=== PATIENT | male | born 1940 | race Caucasian/White ===

== ENCOUNTER 2021-05-08 10:38 | Inpatient (IN) | payer MEDICARE ==
[2021-05-05 11:11] LABS: BASOPHILS % 0.6 % (0.0-1.0); EOSINOPHILS # (AUTO) 0.1 (0.0-0.4); EOSINOPHILS % 1.2 % (0.0-6.0); HEMOGLOBIN 13.7 g/dL (14.0-18.0); LYMPHOCYTES # (AUTO) 1.7 (1.0-3.2); MEAN CORPUSCULAR HEMOGLOBIN 31.1 pg (28-32); MEAN CORPUSCULAR HGB CONC 32.6 g/dL (31-35); MEAN CORPUSCULAR VOLUME 95.5 fL (81-99); MONOCYTES # (AUTO) 0.5 (0.2-0.8); MONOCYTES % 9.8 % (4.4-11.3); NEUTROPHILS # (AUTO) 2.7 (2.1-6.9); PLATELET COUNT 161 x10e3/uL (140-360)
[2021-05-05 11:36] LABS: ANION GAP 10.4 mmol/L (8-16); CALCIUM 8.5 mg/dL (8.4-10.2); CREATININE, SERUM 0.85 mg/dL (0.72-1.25); POTASSIUM 4.4 mmol/L (3.5-5.1)
[~2021-05-08] VITALS: Ht 177.8 cm; Wt 103.4 kg
[~2021-05-08 10:38] MED LIST: ASPIRIN81 MG PO; ATORVASTATIN CA20 MG PO; FINASTERIDE5 MG PO; FLOMAX0.4 MG PO; ISOSORBIDE MONO30 MG PO; METOPROLOL TART50 MG PO; PROTONIX20 MG PO; VITAMIN C100 MG; VITAMIN D31 GM; ZINC
[2021-05-08] MEDS ORDERED: GENTAMICIN 80MG/NS 100 ML 200 ML IV ONE (11:06)
[2021-05-08] MEDS ORDERED: CEFTRIAXONE 1 GM VIAL ONE (11:06)
[2021-05-08] MEDS ORDERED: SODIUM CHLORIDE 0.9% 50ML 50 ML ONE (11:06)
[2021-05-08] MEDS ORDERED: SODIUM CHLORIDE 0.9% 1000ML 1,000 ML ONE (11:06)
[2021-05-08] MEDS ORDERED: FENTANYL CITRATE/PF 100MCG/2 ML INJ ONE (12:18)
[2021-05-08] MEDS ORDERED: MIDAZOLAM HCL 2 MG/2 ML VIAL ONE (12:18)
[2021-05-08] MEDS ORDERED: ONDANSETRON HCL INJ 2MG/ML 2ML 2 MG/ML VIAL ONE (12:45)
[2021-05-08] MEDS ORDERED: DEXAMETHASONE SOD PHOS INJ 4 MG/ML VIAL ONE (12:45)
[2021-05-08] MEDS ORDERED: SEVOFLURANE INHAL SOLN 250 ML PEN BTL ONE (12:45)
[2021-05-08] MEDS ORDERED: POVIDONE IODINE 0.05% 0.05 % ML PO ONE (12:45)
[2021-05-08] MEDS ORDERED: PROPOFOL IV EMULSION 10 MG/ML 20 ML VIAL ONE (12:45)
[2021-05-08] MEDS ORDERED: B&O 60MG R/S 60 MG SUPP PR ONE (12:46)
[2021-05-08] MEDS ORDERED: IOPAMIDOL 300MG/ML 50ML INFUS..BTL IV ONE (12:46)
[2021-05-08] MEDS ORDERED: PHENAZOPYRIDINE HCL 100 MG TAB PO PRN (14:45)
[2021-05-08] MEDS ORDERED: B&O 60MG R/S 60 MG SUPP PR PRN (14:45)
[2021-05-08] MEDS ORDERED: DIPHENHYDRAMINE HCL 25 MG CAP PO PRN (14:45)
[2021-05-08] MEDS ORDERED: ONDANSETRON HCL INJ 2MG/ML 2ML 2 MG/ML VIAL IV PRN (14:45)
[2021-05-08 15:30] LABS: BASOPHILS % 0.4 % (0.0-1.0); EOSINOPHILS % 0.8 % (0.0-6.0); HEMATOCRIT 39.7 % (38.2-49.6); HEMOGLOBIN 12.5 g/dL (14.0-18.0); LYMPHOCYTES # (AUTO) 1.4 (1.0-3.2); LYMPHOCYTES % 26.3 % (18.0-39.1); MEAN CORPUSCULAR HEMOGLOBIN 30.6 pg (28-32); MEAN CORPUSCULAR HGB CONC 31.5 g/dL (31-35); MEAN CORPUSCULAR VOLUME 97.1 fL (81-99); MONOCYTES # (AUTO) 0.3 (0.2-0.8); MONOCYTES % 5.8 % (4.4-11.3); NEUTROPHILS # (AUTO) 3.4 (2.1-6.9); NEUTROPHILS % 66.3 % (38.7-80.0); PLATELET COUNT 148 x10e3/uL (140-360); RED BLOOD COUNT 4.09 x10e6/uL (4.3-5.7); RED CELL DISTRIBUTION WIDTH 13.4 % (11.7-14.4)
[2021-05-08 15:47] LABS: CREATININE, SERUM 0.73 mg/dL (0.72-1.25)
[2021-05-08 16:16] VITALS: BP 139/80
[2021-05-08 16:17] VITALS: BP 139/80
[2021-05-08 16:19] VITALS: BP 139/80
[2021-05-08] MEDS: DOCUSATE SODIUM 100 MG CAP PO SCH (17:22)
[2021-05-08] MEDS: ACETAMINOPHEN/CODEINE 300MG - 30MG TAB PO PRN (17:49)
[2021-05-08] MEDS: D5.45%NS/KCL 20MEQ 1,000 ML IV SCH (18:22)
[2021-05-08 20:00] VITALS: BP 155/90
[2021-05-08 20:51] VITALS: BP 155/90
[2021-05-09] VITALS (7 sets, daily range): BP systolic 103–146; BP diastolic 58–93
[2021-05-09 06:09] LABS: BASOPHILS % 0.1 % (0.0-1.0); HEMATOCRIT 43.7 % (38.2-49.6); HEMOGLOBIN 14.1 g/dL (14.0-18.0); LYMPHOCYTES # (AUTO) 1.1 (1.0-3.2); LYMPHOCYTES % 15.3 % (18.0-39.1); MEAN CORPUSCULAR HEMOGLOBIN 30.9 pg (28-32); MEAN CORPUSCULAR HGB CONC 32.3 g/dL (31-35); MEAN CORPUSCULAR VOLUME 95.6 fL (81-99); MONOCYTES # (AUTO) 0.6 (0.2-0.8); MONOCYTES % 7.6 % (4.4-11.3); NEUTROPHILS # (AUTO) 5.5 (2.1-6.9); NEUTROPHILS % 76.4 % (38.7-80.0); PLATELET COUNT 167 x10e3/uL (140-360); RED BLOOD COUNT 4.57 x10e6/uL (4.3-5.7); RED CELL DISTRIBUTION WIDTH 13.2 % (11.7-14.4)
[2021-05-09 06:19] LABS: ANION GAP 12.4 mmol/L (8-16); CALCIUM 8.5 mg/dL (8.4-10.2); CREATININE, SERUM 0.74 mg/dL (0.72-1.25); POTASSIUM 4.4 mmol/L (3.5-5.1)
[2021-05-09] MEDS: D5.45%NS/KCL 20MEQ 1,000 ML IV SCH (06:50)
[2021-05-09] MEDS: DOCUSATE SODIUM 100 MG CAP PO SCH ×2 (08:29→17:01)
[2021-05-09] MEDS: CEFTRIAXONE 1 GM in SODIUM CHLORIDE 0.9% 50ML 50 ML IV SCH (08:29)
[2021-05-09] MEDS: METOPROLOL TARTRATE 50 MG TAB PO SCH (09:42)
[2021-05-09] MEDS: ISOSORBIDE MONONITRATE 30 MG TAB CR PO SCH (09:42)
[2021-05-09] MEDS: FINASTERIDE 5 MG TAB PO SCH (09:42)
[2021-05-09] MEDS: PANTOPRAZOLE SOD 40 MG TABEC PO SCH (09:42)
[2021-05-09] MEDS: TAMSULOSIN HCL 0.4 MG CAP PO SCH ×2 (09:42→17:01)
[2021-05-09] MEDS ORDERED: ONDANSETRON HCL 4 MG ORAL DISINTEGRATING TAB PO PRN (10:30)
[2021-05-09] MEDS: ATORVASTATIN 40 MG TAB PO SCH ×2 (21:30→22:54)
[2021-05-10] VITALS: BP 118/74
[2021-05-10 04:00] VITALS: BP 122/87
[2021-05-10 05:59] LABS: BASOPHILS % 0.3 % (0.0-1.0); EOSINOPHILS # (AUTO) 0.1 (0.0-0.4); EOSINOPHILS % 0.9 % (0.0-6.0); HEMATOCRIT 40.9 % (38.2-49.6); LYMPHOCYTES # (AUTO) 2.1 (1.0-3.2); LYMPHOCYTES % 29.8 % (18.0-39.1); MEAN CORPUSCULAR HEMOGLOBIN 30.7 pg (28-32); MEAN CORPUSCULAR HGB CONC 31.8 g/dL (31-35); MEAN CORPUSCULAR VOLUME 96.5 fL (81-99); MONOCYTES # (AUTO) 0.7 (0.2-0.8); MONOCYTES % 10.4 % (4.4-11.3); NEUTROPHILS % 58.2 % (38.7-80.0); PLATELET COUNT 154 x10e3/uL (140-360); RED BLOOD COUNT 4.24 x10e6/uL (4.3-5.7); RED CELL DISTRIBUTION WIDTH 13.6 % (11.7-14.4)
[2021-05-10 06:12] LABS: ANION GAP 10.8 mmol/L (8-16); CALCIUM 8.2 mg/dL (8.4-10.2); CREATININE, SERUM 0.73 mg/dL (0.72-1.25); POTASSIUM 3.8 mmol/L (3.5-5.1)
[2021-05-10 08:20] VITALS: BP 129/89
[2021-05-10 08:48] VITALS: BP 129/89
[2021-05-10] MEDS: DOCUSATE SODIUM 100 MG CAP PO SCH ×2 (10:54→16:56)
[2021-05-10] MEDS: CEFTRIAXONE 1 GM in SODIUM CHLORIDE 0.9% 50ML 50 ML IV SCH (10:54)
[2021-05-10] MEDS: TAMSULOSIN HCL 0.4 MG CAP PO SCH ×2 (10:54→16:56)
[2021-05-10] MEDS: ISOSORBIDE MONONITRATE 30 MG TAB CR PO SCH (10:57)
[2021-05-10] MEDS: METOPROLOL TARTRATE 50 MG TAB PO SCH (10:58)
[2021-05-10] MEDS: PANTOPRAZOLE SOD 40 MG TABEC PO SCH (10:58)
[2021-05-10] MEDS: FINASTERIDE 5 MG TAB PO SCH (10:58)
[2021-05-10 11:45] VITALS: BP 149/93
[2021-05-10] MEDS: ACETAMINOPHEN/CODEINE 300MG - 30MG TAB PO PRN (12:32)
[2021-05-10 15:20] VITALS: BP 100/56
[2021-05-10] MEDS: ATORVASTATIN 40 MG TAB PO SCH (21:00)
[2021-05-11 04:00] VITALS: BP 155/96
[2021-05-11 05:20] LABS: BASOPHILS % 0.3 % (0.0-1.0); EOSINOPHILS # (AUTO) 0.1 (0.0-0.4); EOSINOPHILS % 1.3 % (0.0-6.0); HEMATOCRIT 41.3 % (38.2-49.6); HEMOGLOBIN 13.7 g/dL (14.0-18.0); LYMPHOCYTES # (AUTO) 1.6 (1.0-3.2); LYMPHOCYTES % 26.5 % (18.0-39.1); MEAN CORPUSCULAR HGB CONC 33.2 g/dL (31-35); MONOCYTES # (AUTO) 0.7 (0.2-0.8); MONOCYTES % 11.8 % (4.4-11.3); NEUTROPHILS # (AUTO) 3.6 (2.1-6.9); NEUTROPHILS % 59.8 % (38.7-80.0); PLATELET COUNT 152 x10e3/uL (140-360); RED BLOOD COUNT 4.42 x10e6/uL (4.3-5.7); RED CELL DISTRIBUTION WIDTH 13.2 % (11.7-14.4)
[2021-05-11 05:42] LABS: ANION GAP 10.9 mmol/L (8-16); CALCIUM 8.5 mg/dL (8.4-10.2); CREATININE, SERUM 0.7 mg/dL (0.72-1.25); POTASSIUM 3.9 mmol/L (3.5-5.1)
[2021-05-11 05:51] LABS: MEAN CORPUSCULAR VOLUME 93.4 fL (81-99)
[2021-05-11 07:10] VITALS: BP 143/94
[2021-05-11 08:00] VITALS: BP 143/94
[2021-05-11] MEDS: CEFTRIAXONE 1 GM in SODIUM CHLORIDE 0.9% 50ML 50 ML IV SCH (09:00)
[2021-05-11] MEDS: DOCUSATE SODIUM 100 MG CAP PO SCH (09:01)
[2021-05-11] MEDS: TAMSULOSIN HCL 0.4 MG CAP PO SCH (09:01)
[2021-05-11] MEDS: ISOSORBIDE MONONITRATE 30 MG TAB CR PO SCH (09:03)
[2021-05-11] MEDS: PANTOPRAZOLE SOD 40 MG TABEC PO SCH (09:04)
[2021-05-11] MEDS: FINASTERIDE 5 MG TAB PO SCH (09:04)
[2021-05-11] MEDS: METOPROLOL TARTRATE 50 MG TAB PO SCH (09:04)
[2021-05-11 11:44] VITALS: BP 109/79
[2021-05-11] MEDS ORDERED: LEVOFLOXACIN250 MG PO (16:13)
[2021-05-11 16:34] VITALS: BP 123/77
== END 2021-05-11 17:09 | disposition home or self-care (01) | DRG 713 ==
LOC: OR 10:38 → PACU V 14:43 → MED/SURG 15:46
PROVIDERS: ADMIT Urology; ATTEND Urology
PROC: 0T788ZZ Dilation of Bilateral Ureters, Via Natural or Artificial Opening Endoscopic (ICD-10-PCS; 2021-05-08)
PROC: BT141ZZ Fluoroscopy of Kidneys, Ureters and Bladder using Low Osmolar Contrast (ICD-10-PCS; 2021-05-08)
PROC: 0T7D8ZZ Dilation of Urethra, Via Natural or Artificial Opening Endoscopic (ICD-10-PCS; principal; 2021-05-08 13:00)
PROC: 0V508ZZ Destruction of Prostate, Via Natural or Artificial Opening Endoscopic (ICD-10-PCS; 2021-05-08 13:00)
DX: N40.1 Benign prostatic hyperplasia with lower urinary tract symptoms (principal); N13.8 Other obstructive and reflux uropathy; R39.14 Feeling of incomplete bladder emptying; N35.812 Other bulbous urethral stricture, male; I10 Essential (primary) hypertension; I25.10 Atherosclerotic heart disease of native coronary artery without angina pectoris; M17.11 Unilateral primary osteoarthritis, right knee; E78.5 Hyperlipidemia, unspecified
CPT/HCPCS: 36415; 71046; 74420; 80048; 83735; 85025; C1758; J0696; J1100; J1580; J2250; J2405; J3010; J7030